=== PATIENT | female | born 1985 | race Caucasian/White ===

== ENCOUNTER → 2023-08-22 07:48 | Outpatient (BNVA) | payer OTHER, SELFPAY | PROVIDERS: Visit Provider Nurse Practitioner Family | DX: R39.9 Unspecified symptoms and signs involving the genitourinary system (principal); N30.00 Acute cystitis without hematuria | CPT/HCPCS: 81000 ==

== ENCOUNTER 2025-03-18 02:37 | Emergency (ER) | payer OTHER, SELFPAY ==
[2025-03-18 02:44] VITALS: BP 161/121; PULSE 95; RESP 17; TEMP 36.7; O2SAT 99; BMI 36.0
--- NOTE | 2025-03-18 04:08 | W.ED.EAR ---
HPI - Ear Problem General: Chief complaint: Ear Stated complaint: Ear Pain Time Seen by Provider: 03/18/25 04:08 History of Present Illness: 39-year-old female presents emergency room with left ear pain. She has worsening pain has not been able to sleep. Pain is now on the outside of her ear. She had some redness on the outside. She went to urgent care and they put her on some eardrops and had a ear wick in but that is fallen out. Related Data Home Medications ?Medication ?Instructions ?Recorded ?Confirmed amoxicillin 500 mg capsule 500 mg PO BID 03/17/25 03/17/25 Previous Rx's ?Medication ?Instructions ?Recorded sulfamethoxazole 800 1 tab PO BID 5 days #10 tabs 08/22/23 mg-trimethoprim 160 mg tablet (Bactrim DS) [id number]-[id number]-sbostjztz 3.5 4 drp otic (ear) QID 7 days #10 mL 03/17/25 mg/mL-10,000 unit/mL-1 % ear solution cefdinir 300 mg capsule 300 mg PO BID 7 days #14 caps 03/18/25 Allergies Allergy/AdvReac Type Severity Reaction Status Date / Time No Known Allergies Allergy Unverified 03/17/25 11:30 Review of Systems Narrative: Constitutional symptoms: Negative except as documented in HPI. Skin symptoms: Negative except as documented in HPI. Eye symptoms: Negative except as documented in HPI. ENMT symptoms: Negative except as documented in HPI. Respiratory symptoms: Negative except as documented in HPI. Cardiovascular symptoms: Negative except as documented in HPI. Gastrointestinal symptoms: Negative except as documented in HPI. Genitourinary symptoms: Negative except as documented in HPI. Musculoskeletal symptoms: Negative except as documented in HPI. Neurologic symptoms: Negative except as documented in HPI. Psychiatric symptoms: Negative except as documented in HPI. Endocrine symptoms: Negative except as documented in HPI. PFS ED PFSH: Medical History (Updated 03/18/25 @ 04:22 by Erica Kaplan MD) Cough Social History Smoking and tobacco/nicotine status: never used tobacco/nicotine Physical Exam Narrative: EXAM NARRATIVE: General: Alert, no acute distress. Skin: warm and dry Head: Normocephalic Neck: Trachea midline Eye: Extraocular movements are intact. Ears, nose, mouth and throat: Oral mucosa moist. Right ear has some redness on the outside ear and redness internally. Right TM is bulging and appears to have some pus behind the drum at this point. Respiratory: Respirations are non-labored Musculoskeletal: Normal ROM Gastrointestinal: Abdomen does not appear distended Neurological: Alert and oriented, No focal neurological deficit observed. Psychiatric: Cooperative, appropriate mood & affect. Course Vital Signs: Vital signs: Vital Signs Temperature 98.0 F 03/18/25 02:44 Pulse Rate 95 03/18/25 02:44 Respiratory Rate 17 03/18/25 02:44 Blood Pressure 161/121 03/18/25 02:44 Pulse Oximetry 99 03/18/25 02:44 Oxygen Delivery Me thod Room Air 03/18/25 02:44 [facility] - Ear Medical Decision Making Assessment and plan: Otitis externa Otitis media ?IM Toradol. First dose oral antibiotics here. - Discharged home - Discussed plan with patient. Answered any questions. - Evaluation and treatment of this problem were appropriate in the emergency setting. No radiology studies performed this visit Discharge Plan Discharge Patient Disposition: Home Clinical Impression: Otitis externa, Otitis media Condition: Stable Prescriptions: New cefdinir 300 mg capsule 300 mg PO BID 7 Days Qty: 14 0RF No Action sulfamethoxazole-trimethoprim [Bactrim DS] 800-160 mg tablet 1 tab PO BID 5 Days Qty: 10 0RF amoxicillin 500 mg capsule 500 mg PO BID [id number]-rbbjodjcp-[id number] 3.5-10,000-1 mg/mL-unit/mL-% solution 4 drp otic (ear) QID 7 Days Qty: 10 0RF Discharge Orders: Discharge ED (Routine); Ordered 03/18/25 Ordered By: Erica Kaplan Discharge Diet: Usual diet Discharge Activity: Increase activity as tolerated Patient Instructions: Ear Infection (ED), Opioid Safety, Pain Management, Patient Portal & Rivera Instructions Activity Restrictions/Additional Instructions: Thank you for choosing [facility] [place] for your healthcare needs today. You have been screened and evaluated and felt safe for discharge. Health conditions do change or evolve sometimes and as such it is important that you follow up with your Primary Doctor to be re checked, 3-5 days is a general good time frame for follow up. You are always welcome to return to the ED for re assessment if your symptoms are worsening or you have new concerns Print Language: German Coding Level of Care Code ED [employer] for Ephraim Coates
[2025-03-18] MEDS: HYDROcodone-acetaminophen 5-325 mg Tablet 2 TAB PO (04:34)
--- NOTE | 2025-03-18 04:44 | PC.NURSE ---
2 tabs of hydrocodone sent home with pt per MD Kaplan. Documented in log book.
== END 2025-03-18 04:46 | disposition home or self-care (01) ==
PROVIDERS: Emergency Provider Emergency Medicine
DX: H60.92 Unspecified otitis externa, left ear (principal); H66.92 Otitis media, unspecified, left ear
CPT/HCPCS: 96372; 99284; J1885; J9999